=== PATIENT | female | born 1990 | race Two or more races ===

== ENCOUNTER → 2022-04-27 | Outpatient (REF) | LOC: M LAB 14:16 | PROVIDERS: ATTEND Nurse Practitioner Adult Health | DX: Z02.1 Encounter for pre-employment examination (principal) ==

== ENCOUNTER → 2023-02-22 | Outpatient (REF) | payer BC | LOC: M SFHCWAGY 17:05 | PROVIDERS: ATTEND Nurse Practitioner Family | DX: Z01.419 Encounter for gynecological examination (general) (routine) without abnormal findings (principal); Z77.9 Other contact with and (suspected) exposures hazardous to health | CPT/HCPCS: 87624; G0123 ==

== ENCOUNTER 2024-11-01 08:15 | Emergency (ER) | payer BC ==
[~2024-11-01] VITALS: Ht 167.6 cm; Wt 76.7 kg
[2024-11-01] MEDS ORDERED: EMGA120I INJ (09:01)
[2024-11-01 09:02] LABS: PLATELET COUNT, AUTOMATED 339 10^3/uL (150-450)
[2024-11-01 09:24] LABS: ETHYL ALCOHOL (ETHANOL) < 0.003 % (0.000-0.010)
[2024-11-01 09:26] LABS: ALT/SGPT 17 U/L (7.0-40); AST/SGOT 12 U/L (<34); CALCIUM LEVEL 8.8 MG/DL (8.5-10.1); CARBON DIOXIDE LEVEL 24 MMOL/L (20-31); CHLORIDE LEVEL 103 MMOL/L (98-107); CREATININE FOR GFR 0.74 MG/DL (0.55-1.30); GLOMERULAR FILTRATION RATE > 90.0 (>60); POTASSIUM SERUM 3.7 MMOL/L (3.5-5.1); SALICYLATE LEVEL < 3.0 MG/DL (<30); SODIUM LEVEL 135 MMOL/L (136-145)
[2024-11-01 09:31] LABS: HCG, SERUM QUALITATIVE NEGATIVE (NEGATIVE)
[2024-11-01 10:53] LABS: AMPHETAMINES LEVEL URINE NEGATIVE (NEGATIVE); BARBITURATES URINE NEGATIVE (NEGATIVE); BENZODIAZEPINES URINE NEGATIVE (NEGATIVE); CANNABINOIDS URINE NEGATIVE (NEGATIVE); COCAINE METABOLITE URINE NEGATIVE (NEGATIVE); METHADONE URINE NEGATIVE (NEGATIVE); OPIATES URINE NEGATIVE (NEGATIVE); PHENCYCLIDINE URINE NEGATIVE (NEGATIVE)
[2024-11-01] MEDS: NICOTINE 21 MG/24 HR 1 EA TRANSDERMAL TD ONE (11:21)
[2024-11-01] MEDS ORDERED: HOME MED LIST COMPLETE! XX SCH (13:10)
[2024-11-01 14:37] VITALS: BP 123/82; TEMP 98.3; O2SAT 99
== END 2024-11-01 14:39 | disposition home or self-care (01) ==
LOC: M ED 08:15
DX: F32.A Depression, unspecified (principal); F41.9 Anxiety disorder, unspecified; Z88.0 Allergy status to penicillin; Z88.5 Allergy status to narcotic agent; Z91.018 Allergy to other foods; Z79.899 Other long term (current) drug therapy